=== PATIENT | female | born 1945 | race Caucasian/White ===

== ENCOUNTER 2017-06-28 03:01 | Inpatient (IN) | payer OTHER ==
[~2017-06-28] VITALS: Ht 157.5 cm; Wt 64.4 kg
[~2017-06-28 03:01] MED LIST: ADVAIR 100/501 DISK IH; ADVAIR 250/501 DISK IH; ADVAIR HFA120 INHALA IH; Advair HFA 115/21 IH; Ascorbic Acid,Ester- PO; CARDIZEM CD,CA180 MG PO; CARDIZEM CD180 MG PO; CARDIZEM30 MG PO; CELEBREX200 MG PO; CELEBREX50 MG PO; CELEXA20 MG PO; CELEXA40 MG PO; CHANTIX1 MG PO; CIPRO500 MG PO; CITALOPRAM HBR10 MG PO; CITALOPRAM HBR20 MG PO; CITALOPRAM HBR40 MG PO; CLARITIN,ALAVAR10 MG PO; COUMADIN,JANTOVE4 MG PO; Coumadin dosing per PO; DULCOLAX5 MG PO; ENDOCET 5-3251 EACH PO; FEOSOL325 MG PO; FLONASE16 G1 BOTH NARES; FLUTICASONE PRO16 GM BOTH NARES; Flonase BOTH NARES; GABAPENTIN300 MG PO; GABAPENTIN400 MG PO; GUAIFENESI100 MG/5 M PO; HYDROCHLOROTH12.5 M3 PO; HYDRODIURIL,O12.5 M2 PO; Keflex PO; LEVAQUIN500 MG PO; LEVAQUIN750 MG PO; LEVOFLOXACIN750 MG PO; LISINOPRIL-HCT1 EACH PO; MICROZIDE12.5 M1 PO; MORPHINE SULFAT15 M1 PO; Neurontin PO; OXYCODONE-APAP1 EACH PO; Oyst-Cal D, Oscal W/ PO; PANTOPRAZOLE SO40 MG PO; PERCOCET 10/1 TABLET PO; PREDNISONE20 MG PO; PREDNISONE50 MG PO; PROAIR HFA8.5 GM IH; PROTONIX40 MG PO; Proventil,Ventolin H IH; SENOKOT S,PE1 TABLET PO; SPIRIVA RESPIMAT4 GM IH; SPIRIVA1 INHALATI IH; SULINDAC150 MG PO; THERAGRAN1 TABLET PO; TRAMADOL HCL50 MG PO; Thiamine,Vitamin B1 PO; Tylenol Regular Stre PO; VENTOLIN HFA18 GM IH; VITAMIN D1000 INTUN PO; Zoloft PO
[2017-06-28 04:12] LABS: HEMATOCRIT 40.1 % (36.0-46.0); MCHC 31.2 G/DL (30.0-36.0); MCV 96.4 FL (83-99); MEAN PLAT.VOLUME 9.4 uM^3 (9.5-12.4); PLATELET COUNT 184 K/uL (156-360); RBC DIS.WIDTH-CV 14.4 % (11.8-14.6); RBC DIS.WIDTH-SD 50.4 % (39-53); RED BLOOD COUNT 4.16 M/uL (3.80-5.20); WHITE BLOOD COUNT 8.5 K/uL (4.1-10.2)
[2017-06-28 04:25] LABS: CHLORIDE 110 mEq/L (99-109); POTASSIUM 3.4 mEq/L (3.7-5.4); SODIUM 144 mEq/L (136-147)
[2017-06-28 04:27] LABS: GLUCOSE 103 mg/dL (70-99)
[2017-06-28 04:29] LABS: ANION GAP 10 MEQ/L (2-14); TOTAL BILIRUBIN 0.2 mg/dL (0.0-1.0)
[2017-06-28 04:31] LABS: ALKALINE PHOSPHATASE 80 IU/L (3-129); GFR ESTIMATE (CALCULATED) 47 mL/min/
[2017-06-28 04:32] LABS: UREA NITROGEN (BUN) 24 mg/dL (9-23)
[2017-06-28 04:40] LABS: TROP-I INTERPRETATION NEGATIVE; TROPONIN-I < 0.01 ng/mL (0.0-0.30)
[2017-06-28 06:42] LABS: MAGNESIUM 1.9 mg/dL (1.3-2.7)
[2017-06-28 06:46] LABS: SERUM ETHYL ALCOHOL 101 mg/dL
[2017-06-28 08:05] VITALS: BP 148/75
[2017-06-28 16:00] VITALS: BP 129/84
[2017-06-28 21:00] VITALS: BP 105/52
[2017-06-29 00:34] VITALS: BP 134/75
[2017-06-29 04:00] VITALS: BP 129/64
[2017-06-29 05:34] LABS: MCH 30.9 PG (29.0-34.0); MCHC 31.9 G/DL (30.0-36.0); MCV 96.8 FL (83-99); MEAN PLAT.VOLUME 9.8 uM^3 (9.5-12.4); PLATELET COUNT 168 K/uL (156-360); RBC DIS.WIDTH-CV 14.3 % (11.8-14.6); RBC DIS.WIDTH-SD 50.2 % (39-53); RED BLOOD COUNT 3.72 M/uL (3.80-5.20); WHITE BLOOD COUNT 9.2 K/uL (4.1-10.2)
[2017-06-29 06:03] LABS: ANION GAP 5 MEQ/L (2-14); CHLORIDE 106 MEQ/L (99-109); GFR ESTIMATE (CALCULATED) 43 mL/min/; GLUCOSE 93 mg/dL (70-99); SAMPLE HEMOLYSIS CHECK 0; SAMPLE ICTERIC CHECK 0; SAMPLE LIPEMIA CHECK 0; SODIUM 140 MEQ/L (136-147); UREA NITROGEN (BUN) 36 mg/dL (9-23)
[2017-06-29 07:50] VITALS: BP 109/53
[2017-06-29 11:57] VITALS: BP 90/53
[2017-06-29 15:55] VITALS: BP 118/59
[2017-06-29 20:00] VITALS: BP 92/52
[2017-06-30] VITALS (8 sets, daily range): BP systolic 93–123; BP diastolic 50–78
[2017-06-30 05:44] LABS: HEMATOCRIT 36.8 % (36.0-46.0); MCH 30.2 PG (29.0-34.0); MCHC 31.5 G/DL (30.0-36.0); MCV 95.8 FL (83-99); MEAN PLAT.VOLUME 9.9 uM^3 (9.5-12.4); PLATELET COUNT 187 K/uL (156-360); RBC DIS.WIDTH-CV 14.6 % (11.8-14.6); RBC DIS.WIDTH-SD 50.4 % (39-53); RED BLOOD COUNT 3.84 M/uL (3.80-5.20); WHITE BLOOD COUNT 12.9 K/uL (4.1-10.2)
[2017-06-30 06:19] LABS: ANION GAP 8 MEQ/L (2-14); CHLORIDE 107 MEQ/L (99-109); GFR ESTIMATE (CALCULATED) 39 mL/min/; POTASSIUM 4.9 MEQ/L (3.7-5.4); SAMPLE HEMOLYSIS CHECK 0; SAMPLE ICTERIC CHECK 0; SAMPLE LIPEMIA CHECK 0; SODIUM 138 MEQ/L (136-147); UREA NITROGEN (BUN) 52 mg/dL (9-23)
[2017-06-30 06:20] LABS: GLUCOSE 144 mg/dL (70-99)
[2017-07-01] VITALS: BP 106/57
[2017-07-01 03:47] VITALS: BP 102/57
[2017-07-01 07:55] VITALS: BP 114/61
[2017-07-01 08:19] LABS: HEMATOCRIT 40.2 % (36.0-46.0); MCH 31.2 PG (29.0-34.0); MCHC 32.3 G/DL (30.0-36.0); MCV 96.4 FL (83-99); MEAN PLAT.VOLUME 9.9 uM^3 (9.5-12.4); PLATELET COUNT 225 K/uL (156-360); RBC DIS.WIDTH-CV 15.3 % (11.8-14.6); RBC DIS.WIDTH-SD 53.1 % (39-53); RED BLOOD COUNT 4.17 M/uL (3.80-5.20)
[2017-07-01 09:05] LABS: ANION GAP 10 MEQ/L (2-14); CHLORIDE 107 MEQ/L (99-109); GFR ESTIMATE (CALCULATED) 31 mL/min/; GLUCOSE 138 mg/dL (70-99); POTASSIUM 5.2 MEQ/L (3.7-5.4); SAMPLE HEMOLYSIS CHECK 0; SAMPLE ICTERIC CHECK 0; SAMPLE LIPEMIA CHECK 0; SODIUM 140 MEQ/L (136-147); UREA NITROGEN (BUN) 60 mg/dL (9-23)
[2017-07-01 14:51] VITALS: BP 89/53
[2017-07-01 20:33] VITALS: BP 113/63
[2017-07-01 23:49] VITALS: BP 144/80
[2017-07-02 04:21] VITALS: BP 119/71
[2017-07-02 10:31] LABS: ANION GAP 11 MEQ/L (2-14); CHLORIDE 106 MEQ/L (99-109); POTASSIUM 5.2 MEQ/L (3.7-5.4); SAMPLE HEMOLYSIS CHECK 0; SAMPLE ICTERIC CHECK 0; SAMPLE LIPEMIA CHECK 0; SODIUM 140 MEQ/L (136-147)
[2017-07-02 10:46] LABS: GFR ESTIMATE (CALCULATED) 28 mL/min/; GLUCOSE 217 mg/dL (70-99); UREA NITROGEN (BUN) 70 mg/dL (9-23)
[2017-07-02 11:06] VITALS: BP 118/72; BP 128/76
[2017-07-02 15:16] VITALS: BP 128/76
[2017-07-02 19:29] VITALS: BP 132/60
[2017-07-02 23:52] VITALS: BP 133/67
[2017-07-03 01:39] LABS: ADD MIUA? NO; BILIRUBIN NEGATIVE; BLOOD NEGATIVE; COLOR STRAW ((YELLOW)); GLUCOSE (STRIP) NEGATIVE; KETONES NEGATIVE; LEUKOCYTES NEGATIVE; NITRITE NEGATIVE; PROTEIN (STRIP) NEGATIVE; SPECIFIC GRAVITY 1.011 (1.000-1.030); UROBILINOGEN 0.2 MG/DL (0.2-1.0)
[2017-07-03 02:09] LABS: UR CREATININE CONCENTRATION 47.1 MG/DL
[2017-07-03 04:23] VITALS: BP 155/79
[2017-07-03 06:36] LABS: MCH 30.4 PG (29.0-34.0); MCHC 31.3 G/DL (30.0-36.0); MCV 96.9 FL (83-99); MEAN PLAT.VOLUME 9.8 uM^3 (9.5-12.4); PLATELET COUNT 222 K/uL (156-360); RBC DIS.WIDTH-CV 15.5 % (11.8-14.6); RBC DIS.WIDTH-SD 54.2 % (39-53); RED BLOOD COUNT 3.92 M/uL (3.80-5.20); WHITE BLOOD COUNT 12.7 K/uL (4.1-10.2)
[2017-07-03 07:01] LABS: ANION GAP 10 MEQ/L (2-14); CHLORIDE 111 MEQ/L (99-109); GFR ESTIMATE (CALCULATED) 29 mL/min/; GLUCOSE 126 mg/dL (70-99); POTASSIUM 5.1 MEQ/L (3.7-5.4); SAMPLE HEMOLYSIS CHECK 0; SAMPLE ICTERIC CHECK 0; SAMPLE LIPEMIA CHECK 0; SODIUM 141 MEQ/L (136-147); UREA NITROGEN (BUN) 65 mg/dL (9-23); URIC ACID 6.9 mg/dL (3.1-9.2)
[2017-07-03 08:23] VITALS: BP 140/72
[2017-07-03 08:23] LABS: ABS NEUTROPHIL COUNT 12.1; ANISOCYTOSIS 1+; BAND NEUTROPHILS 2.8 % (0-8.0); EOSINOPHIL ABS CT 0; INSTRUMENT ABS NEUTROPHIL CT 10.8 K/uL; LYMPHOCYTES 0.9 % (15.0-45.0); MACROCYTES 1+; MYELOCYTES 2.7 %; PLAT.SUFFICIENCY ADEQUATE; SEG.NEUTROPHILS 92.7 % (46.0-76.0)
[2017-07-03 16:09] VITALS: BP 117/56
[2017-07-03 20:00] VITALS: BP 128/76
[2017-07-03 23:51] VITALS: BP 108/53
[2017-07-04 03:00] VITALS: BP 156/88
[2017-07-04 05:54] LABS: HEMATOCRIT 40.5 % (36.0-46.0); MCH 29.9 PG (29.0-34.0); MCHC 30.9 G/DL (30.0-36.0); MCV 96.9 FL (83-99); MEAN PLAT.VOLUME 9.6 uM^3 (9.5-12.4); PLATELET COUNT 253 K/uL (156-360); RBC DIS.WIDTH-CV 15.9 % (11.8-14.6); RBC DIS.WIDTH-SD 55.5 % (39-53); RED BLOOD COUNT 4.18 M/uL (3.80-5.20); WHITE BLOOD COUNT 13.4 K/uL (4.1-10.2)
[2017-07-04 06:39] LABS: ANION GAP 9 MEQ/L (2-14); CHLORIDE 107 MEQ/L (99-109); GFR ESTIMATE (CALCULATED) 39 mL/min/; POTASSIUM 5.3 MEQ/L (3.7-5.4); SAMPLE HEMOLYSIS CHECK 0; SAMPLE ICTERIC CHECK 0; SAMPLE LIPEMIA CHECK 0; SODIUM 136 MEQ/L (136-147); UREA NITROGEN (BUN) 57 mg/dL (9-23)
[2017-07-04 06:52] LABS: GLUCOSE 94 mg/dL (70-99)
[2017-07-04 07:07] LABS: ABS NEUTROPHIL COUNT 10.8; ANISOCYTOSIS 1+; ATYPICAL LYMPHOCYTE 2.6 %; BAND NEUTROPHILS 1.8 % (0-8.0); BASOPHILS 0.9 %; EOSINOPHIL ABS CT 0; INSTRUMENT ABS NEUTROPHIL CT 9.6 K/uL; LYMPHOCYTES 8.8 % (15.0-45.0); METAMYELOCYTES 0.9 %; MYELOCYTES 0.9 %; PLAT.SUFFICIENCY ADEQUATE; SEG.NEUTROPHILS 78.8 % (46.0-76.0)
[2017-07-04 08:00] VITALS: BP 140/85
[2017-07-04 11:40] VITALS: BP 115/56
[2017-07-04 16:00] VITALS: BP 133/57
[2017-07-04 19:20] VITALS: BP 148/73
[2017-07-05 00:20] VITALS: BP 153/81
[2017-07-05 03:00] VITALS: BP 160/85
[2017-07-05 07:21] VITALS: BP 163/77
[2017-07-05 08:18] LABS: HEMATOCRIT 38.8 % (36.0-46.0); MCH 30.3 PG (29.0-34.0); MCHC 31.2 G/DL (30.0-36.0); MCV 97.2 FL (83-99); MEAN PLAT.VOLUME 9.1 uM^3 (9.5-12.4); NRBC (%) 0.2 /100 WBC (0-0); PLATELET COUNT 224 K/uL (156-360); RBC DIS.WIDTH-CV 16.1 % (11.8-14.6); RBC DIS.WIDTH-SD 56.2 % (39-53); RED BLOOD COUNT 3.99 M/uL (3.80-5.20); WHITE BLOOD COUNT 12.4 K/uL (4.1-10.2)
[2017-07-05 08:55] LABS: ANION GAP 6 MEQ/L (2-14); CHLORIDE 108 MEQ/L (99-109); GFR ESTIMATE (CALCULATED) 43 mL/min/; GLUCOSE 83 mg/dL (70-99); POTASSIUM 5.6 MEQ/L (3.7-5.4); SAMPLE HEMOLYSIS CHECK 1; SAMPLE ICTERIC CHECK 0; SAMPLE LIPEMIA CHECK 0; SODIUM 138 MEQ/L (136-147); UREA NITROGEN (BUN) 40 mg/dL (9-23)
[2017-07-05 08:58] LABS: ABS NEUTROPHIL COUNT 7.2; ANISOCYTOSIS 1+; EOSINOPHIL ABS CT 0; INSTRUMENT ABS NEUTROPHIL CT 6.5 K/uL; MACROCYTES 1+; METAMYELOCYTES 3.5 %; MYELOCYTES 1.8 %; PLAT.SUFFICIENCY ADEQUATE
[2017-07-05 09:04] LABS: LYMPHOCYTES 34.2 % (15.0-45.0); SEG.NEUTROPHILS 57.9 % (46.0-76.0)
[2017-07-05 12:56] VITALS: BP 126/59
[2017-07-05] MEDS ORDERED: FOLIC ACID1 MG PO (14:49)
[2017-07-05] MEDS ORDERED: CEFTIN500 MG PO (14:49)
[2017-07-05] MEDS ORDERED: B-1100 MG PO (14:49)
[2017-07-05] MEDS ORDERED: SPIRIVA RESPIMAT4 GM IH (14:49)
[2017-07-05] MEDS ORDERED: BENZONATATE100 MG PO (14:49)
[2017-07-05] MEDS ORDERED: BREO ELLIPTA 21 EACH IH (14:49)
[2017-07-05] MEDS ORDERED: PREDNISONE20 MG PO (14:49)
[2017-07-05] MEDS ORDERED: TYLENOL REGULA325 MG PO (14:49)
[2017-07-05] MEDS ORDERED: NICOTINE PATCH1 EAC2 TD (14:49)
[2017-07-05] MEDS ORDERED: BUPROPION HCL150 M2 PO (14:49)
[2017-07-05] MEDS ORDERED: METOPROLOL SUCC25 MG PO (14:49)
[2017-07-05] MEDS ORDERED: DILTIAZEM 24HR180 MG PO (14:49)
[2017-07-05] MEDS ORDERED: VENTOLIN HFA18 GM IH (14:49)
[2017-07-05] MEDS ORDERED: THERAGRAN1 TABLET PO (14:49)
[2017-07-05 15:34] VITALS: BP 146/80
== END 2017-07-05 19:24 | disposition home health service (06) | DRG 190 ==
LOC: EXP 03:01 → EME 03:01 → EDOF 05:46 → ENRESERV 05:52 → 5WEST 07:24 → ENRESERV 06-29 10:16 → CANRESERV 06-29 10:16 → 5WEST 07-05 19:24
PROVIDERS: Internal Medicine; Internal Medicine Nephrology; Physician Assistant
DX: J44.1 Chronic obstructive pulmonary disease with (acute) exacerbation (principal); J96.21 Acute and chronic respiratory failure with hypoxia; J98.11 Atelectasis; N17.9 Acute kidney failure, unspecified; F10.239 Alcohol dependence with withdrawal, unspecified; F33.9 Major depressive disorder, recurrent, unspecified; J90 Pleural effusion, not elsewhere classified; J20.9 Acute bronchitis, unspecified; I27.2 Other secondary pulmonary hypertension; I48.0 Paroxysmal atrial fibrillation; K21.9 Gastro-esophageal reflux disease without esophagitis; F10.229 Alcohol dependence with intoxication, unspecified; M71.21 Synovial cyst of popliteal space [Baker], right knee; N18.3 Chronic kidney disease, stage 3 (moderate); I12.9 Hypertensive chronic kidney disease with stage 1 through stage 4 chronic kidney disease, or unspecified chronic kidney disease; G89.29 Other chronic pain; F41.9 Anxiety disorder, unspecified; F17.210 Nicotine dependence, cigarettes, uncomplicated; E87.5 Hyperkalemia; E86.0 Dehydration; T38.0X5A Adverse effect of glucocorticoids and synthetic analogues, initial encounter; T46.4X5A Adverse effect of angiotensin-converting-enzyme inhibitors, initial encounter; T50.1X5A Adverse effect of loop [high-ceiling] diuretics, initial encounter; Y90.5 Blood alcohol level of 100-119 mg/100 ml; Z59.0 Homelessness; Z99.81 Dependence on supplemental oxygen; Z91.14 Patient's other noncompliance with medication regimen
CPT/HCPCS: 71010; 71020; 76770; 80048; 80053; 81003; 82570; 83735; 83880; 84100; 84132 91; 84156; 84484; 84550; 85025; 85027; 87070; 87205; 93005; 93306; 93970; 94640; 94640 76; 94799; 99202; 99281; 99285; G0378; G0480; J0696; J1644; J2920; J3411; J3475; J7030; J7050; J7512